=== PATIENT | female | born 1945 | race Caucasian/White ===

== ENCOUNTER 2024-03-04 04:16 | Inpatient (IN) | payer OTHER, SELFPAY ==
[2024-03-03 21:04] VITALS: BP 189/107; BMI 21.5
[2024-03-03 21:32] LABS: % Basophils 0.1 % (0-2); % Eosinophils 0.9 % (0-6); % Immature Granulocytes 0.4 % (0-0.5); % Monocytes 4.5 % (1.7-9.3); % Neutrophils 70.1 % (42.2-75.2); Absolute Eosinophils 0.1 10^3/uL (0-0.7); Absolute Lymphocytes 1.8 10^3/uL (1.2-3.4); Absolute Monocytes 0.3 10^3/uL (0.1-0.6); Absolute Neutrophils 5.2 10^3/uL (1.4-6.5); Hematocrit 29.5 % (37.0-47.0); Hemoglobin 10.3 g/dL (12.0-16.0); Mean Corp Hgb Conc. 34.9 g/dL (33.0-37.0); Mean Corpuscular Hgb 32.3 pg (27.0-31.0); Mean Corpuscular Volume 92.5 fL (81.0-99.0); Mean Platelet Volume 8.5 fL (7.4-10.4); Nucleated Red Blood Cells % 0 %; Platelet Count 224 10^3/uL (130-400); Red Blood Cell Count 3.19 10^6/uL (4.20-5.40); Red Cell Dist. Width 13.4 % (11.5-14.5); White Blood Cell Count 7.5 10^3/uL (4.8-10.8)
[2024-03-03 21:44] LABS: ALT (SGPT) 37 U/L (0-35); AST (SGOT) 64 U/L (14-36); Alkaline Phosphatase 156 U/L (38-126); Blood Urea Nitrogen 18 mg/dl (7-17); Calcium 9.5 mg/dl (8.4-10.2); Carbon Dioxide 20 mmol/L (22-30); Chloride 109 mmol/L (98-107); Estimated Creatinine Clearance 26 ml/min; Glucose 107 mg/dl (70-99); Potassium 3.9 mmol/L (3.5-5.1); Sodium 139 mmol/L (135-145); Total Bilirubin 0.3 mg/dl (0.2-1.3); Total Protein 7.2 g/dl (6.3-8.2); eGFR 42.35
[2024-03-03 21:52] LABS: Lipase < 10 U/L (23-300)
[2024-03-03 21:56] LABS: Troponin I < 0.012 ng/ml
[2024-03-03 23:29] VITALS: BP 187/102
--- NOTE | 2024-03-03 23:42 | ED.GENMED ---
History of Present Illness
General
Chief Complaint: Blood Pressure Problem
Source: patient and family
Exam Limitations: none
Time Seen by Provider: 03/03/24 23:13
Nursing documentation reviewed up to this point in time: agreed with
Travel History
Have you had any contact with someone who has COVID-19?: No
Do you have any symptoms of coronavirus? Fever > 100 degrees, chills, cough, shortness of breath, sore throat, loss of taste or smell, muscle aches, or headache?: No
History of Present Illness
History of Present Illness:
78-year-old female for 5 days intermittent dizziness, associated with some headaches, comes out of the blue feels like she is hungry eats and does not improved too much, does have a history of gastroparesis she has had a fundoplication for 5 months
ago since then she has had sounds like dumping syndrome, frequent nausea some vomiting and diarrhea after eating, history of hypertension on Norvasc 5, she did take her blood pressure today was elevated spoke to her PCP referred to the ER to be
evaluated no slurred speech no arm or leg weakness
Past History
Past History
ED Past Medical History: Asthma, Cancer (Breast), COPD, GERD, HTN and Other (PNA, gastropariesis, )
ED Past Surgical History: Cholecystectomy, Orthopedic (right shoulder surgery. Spinal fusion) and Other ( surgery for Fundification. )
Social History
Tobacco: Former smoker
Alcohol: None
Drug: None
Personal:
Living: with family (Son)
Employment: Retired
Review of Systems
Review of Systems
All Other Systems: Not applicable
Constitutional: Denies fever or fatigue
EENT: Reports no symptoms
Respiratory: Reports no symptoms
Cardiac: Reports no symptoms
ABD/GI: Reports abdominal pain (Chronic complaint), nausea, vomiting and diarrhea ( chronic complaint)
Neurological: Reports dizzy
Phy Exam
Physical Exam
Physical Exam:
Physical Exam
General: no apparent distress, not acutely ill
Neck: Lips are slightly dry
Heart: s1/s2 regular rate and rhythm, no murmur. equal radial pulses.
Lungs: no acute respiratory distress. clear bilaterally
Abdomen: Soft very mild diffuse tenderness no guarding or rebound
Neuro: alert and oriented. no focal neurological deficits normal finger-nose
Skin: no rash
Psychiatric: well kept. interactive and cooperative
Extremities: no edema.
Course
Orders/Labs/Results
Orders:
Orders
03/03/24 21:08
Electrocardiogram (*1) Urgent
Reason for Study: Chest Pain
EKG- Treatment ONCE
03/03/24 21:26
Complete Blood Count/With Diff Urgent
Comprehensive Metabolic Panel Urgent
Lipase Urgent
Troponin I Urgent
03/03/24 23:41
0.9% Sodium Chloride 1000 ml [Nss] 1,000 ml IV BOLUS
HydrALAZINE [Apresoline] 5 mg IV NOW STA
Ondansetron Injectable [Zofran] 4 mg IV NOW STA
Abnormal Lab Results
03/03/24
21:26
RBC 3.19 L 10^6/uL
(4.20-5.40)
Hgb 10.3 L g/dL
(12.0-16.0)
Hct 29.5 L %
(37.0-47.0)
MCH 32.3 H pg
(27.0-31.0)
Chloride 109 H mmol/L
(98-107)
Carbon Dioxide 20 L mmol/L
(22-30)
BUN 18 H mg/dl
(7-17)
Creatinine 1.3 H mg/dL
(0.6-1.0)
Glucose 107 H mg/dl
(70-99)
AST 64 H U/L
(14-36)
ALT 37 H U/L
(0-35)
Alkaline Phosphatase 156 H U/L
(38-126)
Lipase < 10 L U/L
(23-300)
03/03/24 21:26
03/03/24 21:26
Vital Signs
Initial and Last Documented VS:
Initial Vital Signs
Temp Pulse Resp BP Pulse Ox
98 F 84 20 189/107 98
03/03/24 21:04 03/03/24 21:04 03/03/24 21:04 03/03/24 21:04 03/03/24 21:04
Last Documented Vital Signs
Temp Pulse Resp BP Pulse Ox
98 F 84 20 189/107 98
03/03/24 21:04 03/03/24 21:04 03/03/24 21:04 03/03/24 21:04 03/03/24 21:04
MDM/Problems Addressed
Differential Diagnosis Includes:
Electrolyte abnormality dehydration vertigo doubt intracerebral hemorrhage, perhaps related to accelerated hypertension
MDM/Problems Addressed:
Dizziness, subacute diarrhea hypertension
Chronic conditions affecting care: HTN and Previous abdomnial surgery
Acute Exacerbation and/or Progression of Chronic Illness: HTN and Previous abdomnial surgery
*Radiology
Radiology exam reviewed: radiology read reviewed
*Pulse Oximetry
Patient hypoxic: no
*EKG
Interpreted by ED Provider?: Yes
Interpretation: normal
Heart Rate: 78
Rate: normal
Ischemia: no ischemia
*Chairman Ceo Interpretation
Rate: normal
Interpretation: normal
Heart Rate: 78
Rhythm: sinus
*Critical Care Note
Total Time (30-74mins, 75-104mins- exclusive of procedures): Not Applicable
ED Attending Note
-
Portions of this chart may have been created with voice recognition software.� Occasional wrong word or��sound alike� substitutions may have occurred due to the inherent limitations of voice recognition software.
Discharge Plan
Departure
Prescriptions:
No Action
cephalexin 500 mg capsule
500 mg PO Q12H 5 Days Qty: 10 0RF
Referrals:
Eddie Degroot I., DO [Family Provider] -
Interventions
Interventions:
*Risk Screen - Suicide Last Done: 03/03/24 21:04
*General Assessment Last Done: 03/03/24 23:23
*Neglect/Abuse Screening Last Done: 03/03/24 21:04
ED- Fall Risk Assessment Last Done: 03/03/24 21:04
*ED COVID-19 Vaccine History Last Done: 03/03/24 23:23
ED- Cardiac Assessment Last Done: 03/03/24 23:23
ED- Neurological Assessment Last Done: 03/03/24 23:23
ED- Pulmonary Assessment Last Done: 03/03/24 23:23
Discharge Date and Time
Print Language: THAI
[2024-03-04] VITALS (17 sets, daily range): BP systolic 135–197; BP diastolic 71–137; BMI 22.0
[2024-03-04] MEDS: NSS 1000 IV (00:03)
[2024-03-04] MEDS: APRESOLINE 5 MG IV (00:04)
[2024-03-04] MEDS: ZOFRAN 4 MG IV (00:04)
[2024-03-04] MEDS: TYLENOL 650 MG PO (00:48)
--- NOTE | 2024-03-04 01:23 | ED.GENMED ---
History of Present Illness
General
Chief Complaint: Blood Pressure Problem
Time Seen by Provider: 03/03/24 23:13
Travel History
Have you had any contact with someone who has COVID-19?: No
Do you have any symptoms of coronavirus? Fever > 100 degrees, chills, cough, shortness of breath, sore throat, loss of taste or smell, muscle aches, or headache?: No
Past History
Past History
ED Past Medical History: Asthma, Cancer (Breast), COPD, GERD, HTN and Other (PNA, gastropariesis, )
ED Past Surgical History: Cholecystectomy, Orthopedic (right shoulder surgery. Spinal fusion) and Other ( surgery for Fundification. )
Social History
Tobacco: Former smoker
Alcohol: None
Drug: None
Personal:
Living: with family (Son)
Employment: Retired
Course
Orders/Labs/Results
Orders:
Orders
03/03/24 21:08
Electrocardiogram (*1) Urgent
Reason for Study: Chest Pain
EKG- Treatment ONCE
03/03/24 21:26
Complete Blood Count/With Diff Urgent
Comprehensive Metabolic Panel Urgent
Lipase Urgent
Troponin I Urgent
03/03/24 23:41
0.9% Sodium Chloride 1000 ml [Nss] 1,000 ml IV BOLUS
HydrALAZINE [Apresoline] 5 mg IV NOW STA
Ondansetron Injectable [Zofran] 4 mg IV NOW STA
03/04/24 00:07
CT Head W/o Iv Contrast Urgent
Comment:
Reason For Exam: dizzy headache
03/04/24 00:44
Acetaminophen [Tylenol] 650 mg PO NOW STA
03/04/24 01:21
Lorazepam [Ativan] 1 mg IV NOW STA
Abnormal Lab Results
03/03/24
21:26
RBC 3.19 L 10^6/uL
(4.20-5.40)
Hgb 10.3 L g/dL
(12.0-16.0)
Hct 29.5 L %
(37.0-47.0)
MCH 32.3 H pg
(27.0-31.0)
Chloride 109 H mmol/L
(98-107)
Carbon Dioxide 20 L mmol/L
(22-30)
BUN 18 H mg/dl
(7-17)
Creatinine 1.3 H mg/dL
(0.6-1.0)
Glucose 107 H mg/dl
(70-99)
AST 64 H U/L
(14-36)
ALT 37 H U/L
(0-35)
Alkaline Phosphatase 156 H U/L
(38-126)
Lipase < 10 L U/L
(23-300)
03/03/24 21:26
03/03/24 21:26
Vital Signs
Initial and Last Documented VS:
Initial Vital Signs
Temp Pulse Resp BP Pulse Ox
98 F 84 20 189/107 98
03/03/24 21:04 03/03/24 21:04 03/03/24 21:04 03/03/24 21:04 03/03/24 21:04
Last Documented Vital Signs
Temp Pulse Resp BP Pulse Ox
98 F 87 18 144/95 98
03/03/24 21:04 03/04/24 02:00 03/04/24 02:00 03/04/24 02:00 03/03/24 21:04
Update Note
Update Note:
1:20 AM called to the room patient shaking, slightly diaphoretic, blood pressure markedly elevated speech is clear he had a headache earlier
BP 197/137
Try dose lorazepam like to get a CT scan
Update CT report noted no intracerebral hemorrhage blood pressure improved patient still a bit shaky much improved differential would include pheochromocytoma anxiety accelerated hypertension
ED Attending Note
-
Portions of this chart may have been created with voice recognition software.� Occasional wrong word or��sound alike� substitutions may have occurred due to the inherent limitations of voice recognition software.
Discharge Plan
Departure
Patient Disposition: Admit
Date of Disposition: 03/04/24
Time of Disposition: 02:52
Condition: Fair
Covid-19: Not Applicable
Discharge Problem:
Accelerated hypertension
Prescriptions:
No Action
cephalexin 500 mg capsule
500 mg PO Q12H 5 Days Qty: 10 0RF
Referrals:
Eddie Degroot I., DO [Family Provider] -
Interventions
Interventions:
*Risk Screen - Suicide Last Done: 03/03/24 21:04
*General Assessment Last Done: 03/03/24 23:23
*Neglect/Abuse Screening Last Done: 03/03/24 21:04
ED- Fall Risk Assessment Last Done: 03/03/24 21:04
*ED COVID-19 Vaccine History Last Done: 03/03/24 23:23
ED- Cardiac Assessment Last Done: 03/03/24 23:23
ED- Neurological Assessment Last Done: 03/03/24 23:23
ED- Pulmonary Assessment Last Done: 03/03/24 23:23
Discharge Date and Time
Print Language: DIVEHI
[2024-03-04] MEDS: ATIVAN 1 MG IV (01:24)
--- NOTE | 2024-03-04 02:57 | HPS.HSE ---
Family Physician
-
Family Physician: Eddie Degroot
Chief Complaint
-
intermittent dizziness
History of Present Illness
Ms. Dana Garcia is a 78 yo woman with hx asthma/COPD, GERD, HTN, gastroparesis s/p fundoplication 5 months ago with post-op course c/b frequent nausea and diarrhea presents to the ER with 5 days of intermittent lightheadedness and elevated blood
pressure at home.
Patient states she was getting episodes of feeling lightheaded dizzy at home over past several days. Symptoms would last 45 minutes - an hour but come back next day. No chest pain, no palpitations, no shortness of breath. Today it reoccurred and
she had trouble concentrating. Son recommended checking blood pressure and it was elevated. They called PCP who suggested patient come to ER.
Patient takes amlodipine 5mg PO QD at home for blood pressure. She takes her med daily and has not skipped doses. No recent medication changes. She states it's typical for her to run high at her doctor's office but doesn't know exact numbers.
While in ER she had episode of feeling unwell with tremors and blood pressure checked and found to be 193/137. She was given Hydralazine with improvement to 176/112 and now 150's/90.
No recent fevers/chills. No LE swelling. No rash.
Patient had gastroparesis s/p fundoplication then s/p revision with loosening of sphincter 5-6 months ago. Since procedure she has significant diarrhea and abdominal upset. She has been tested for C. Diff twice. She takes Lomotil and had an
appointment to follow up with her GI doctor associated with [facility] tomorrow.
Medical History
Past Medical History
Past Medical History: Reports Other (asthma/COPD, GERD, HTN, gastroparesis s/p fundoplication 5 months ago)
Past Surgical History: Reports Cholecystectomy, Orthopedic and Other
Social History
Tobacco: Former Smoker
Alcohol: None
Family History
Family History: Not pertinent
Allergies / Home Medications
Allergies reflects when Allergies were last updated in [employer].
Home Medications with original date entered in [employer]
Allergy/Medication List:
Allergies
Allergy/AdvReac Type Severity Reaction Status Date / Time
aspirin Allergy Severe Unknown Verified 03/03/24 21:07
NSAIDS (Non-Steroidal Allergy Severe Unknown Verified 03/03/24 21:07
Anti-Inflamma
penicillin G Allergy Severe Unknown Verified 03/03/24 21:07
Penicillins Allergy Severe Unknown Verified 03/03/24 21:07
Salicylates * Allergy Severe Unknown Verified 03/03/24 21:07
Sulfa (Sulfonamide Allergy Severe Unknown Verified 03/03/24 21:07
Antibiotics)
sulfamethoxazole Allergy Severe Unknown Verified 03/03/24 21:07
trimethoprim Allergy Severe Unknown Verified 03/03/24 21:07
Home Medications
diphenoxylate-atropine 2.5 mg-0.025 mg tablet (Lomotil) 1 tab PO DAILY PRN diarrhea 03/04/24
famotidine 20 mg tablet (Pepcid) 40 mg PO HS 03/04/24
omega-3 fatty acids-fish oil 684 mg-1,200 mg capsule,delayed release 1 cap PO DAILY 03/04/24
pantoprazole 40 mg tablet,delayed release (Protonix) 40 mg PO DAILY 03/04/24
Review of Systems
-
History Source: Patient
A 12 point ROS was completed and negative except as noted: Yes
Physical Exam
Vital Signs
Vital Signs
Temp Pulse Resp BP Pulse Ox
98 F 87 18 144/95 98
03/03/24 21:04 03/04/24 02:00 03/04/24 02:00 03/04/24 02:00 03/03/24 21:04
Physical Exam
General: No Apparent Distress and Conversant
HEENT: PERRLA
Respiratory: Clear; No Wheezes
Cardiac: S1/S2 and Regular Rhythm
GI: Soft and Non Tender
Musculoskeletal: No Edema
Skin: Warm and Dry; No Rash
Neuro: AO x 3
Psych: Calm
Laboratory Results
-
03/03/24 21:26
03/03/24:
Laboratory Results
Total Bilirubin 0.3 mg/dl (0.2-1.3) 03/03/24:
AST 64 U/L (14-36) H 03/03/24:
ALT 37 U/L (0-35) H 03/03/24:
Alkaline Phosphatase 156 U/L (38-126) H 03/03/24:
Troponin I < 0.012 ng/ml 03/03/24:
Lipase < 10 U/L (23-300) L 03/03/24:
Data Reviewed
-
Diagnostic Radiology: Report Reviewed by me
Lab Data: Labs Reviewed by me
Impression/Plan
-
Ms. Dana Garcia is a 78 yo woman with hx asthma/COPD, GERD, HTN, gastroparesis s/p fundoplication 5 months ago with post-op course c/b frequent nausea and diarrhea presents to the ER with 5 days of intermittent dizziness and elevated blood
pressure at home.
Triage VS: T 98, P 84, RR 20, BP 189/107, SpO2 98%
LABS: WBC 7.5, Hg 10.3, PLT 224, Na 139, K+ 3.9, CO2 20, BUN 18, Cr 1.3 (baseline), Glucose 107, T. Bili 0.3, AST 64, ALT 37, Trop < 0.012, Lipase < 10
EKG, sinus rhythm with short [place] interval; q waves inferior leads
Head CT: no acute intracranial abnormality. No acute territorial infarct, hemorrhage, mass effect or midline shift. chronic small bifrontal subdural effusions
MAR: IV Hydralazine, IVF, Ativan, Zofran, Tylenol
Hypertensive Urgency
-patient with readings up to 197/137 in ER with symptoms; high BP likely related to lightheaded episodes at home
-increase HARPOON ENGAGEMENT PLANNING OPERATOR amlodipine from 5 to 10mg with PRN hydralazine for now
-Renal consult
-TTE
-F/U work-up renin/aldosterone and plasma metanephrines
-trend Troponins
GERD
Hx Gastroparesis s/p fundoplication
chronic diarrhea post procedure
-continue HARPOON ENGAGEMENT PLANNING OPERATOR protonix/Pepcid
-HARPOON ENGAGEMENT PLANNING OPERATOR Lomotil PRN
-patient to continue follow up with outpatient providers at [facility]
DVT PPx SCD
FULL CODE
[2024-03-04 03:45] LABS: Magnesium 1.7 mg/dl (1.6-2.3)
[2024-03-04 07:01] LABS: % Basophils 0.5 % (0-2); % Eosinophils 1.9 % (0-6); % Immature Granulocytes 0.2 % (0-0.5); % Lymphocytes 32.9 % (20.5-51.1); % Monocytes 4.5 % (1.7-9.3); Absolute Eosinophils 0.1 10^3/uL (0-0.7); Absolute Monocytes 0.3 10^3/uL (0.1-0.6); Absolute Neutrophils 3.7 10^3/uL (1.4-6.5); Hematocrit 30.7 % (37.0-47.0); Hemoglobin 10.4 g/dL (12.0-16.0); Mean Corp Hgb Conc. 33.9 g/dL (33.0-37.0); Mean Corpuscular Hgb 31.8 pg (27.0-31.0); Mean Corpuscular Volume 93.9 fL (81.0-99.0); Mean Platelet Volume 8.8 fL (7.4-10.4); Nucleated Red Blood Cells % 0 %; Platelet Count 225 10^3/uL (130-400); Red Blood Cell Count 3.27 10^6/uL (4.20-5.40); Red Cell Dist. Width 13.2 % (11.5-14.5); White Blood Cell Count 6.2 10^3/uL (4.8-10.8)
[2024-03-04 07:20] LABS: Troponin I < 0.012 ng/ml
[2024-03-04 07:26] LABS: Blood Urea Nitrogen 17 mg/dl (7-17); Calcium 9.2 mg/dl (8.4-10.2); Carbon Dioxide 23 mmol/L (22-30); Chloride 110 mmol/L (98-107); Estimated Creatinine Clearance 34 ml/min; Glucose 108 mg/dl (70-99); Magnesium 1.6 mg/dl (1.6-2.3); Potassium 4.2 mmol/L (3.5-5.1); Sodium 138 mmol/L (135-145); eGFR 58.02
[2024-03-04 07:49] LABS: Cortisol, Random 17.8 ug/dl; TSH 2.75 uIU/ml (0.47-4.68)
[2024-03-04] MEDS: PROTONIX 40 MG PO (08:39)
--- NOTE | 2024-03-04 09:49 | W.CON.NEPH ---
Consultation
-
Date/Time Consultation Requested: 03/04/2024 8:00 AM
Date/Time Consultation Performed: 03/04/2024 10:00
Requesting Provider: Hardik
Performing Provider: Dr. Cruz
Reason for Consultation: Hypertension
Medical History
-
Chief Complaint: Hypertension
History of Present Illness:
The patient is a 78-year-old female with a past medical history of hypertension maintained on amlodipine. She is maintained on Pepcid and Protonix for her GERD. She is maintained on fish oil for dyslipidemia. She has a prior history of
gastroparesis and underwent fundoplication 5 months previous with a postoperative course complicated by frequent nausea and diarrhea. She presented to the emergency room with 5 days of ongoing intermittent lightheadedness and elevated blood
pressure at home. There is no associated chest pain palpitations or shortness of breath with her lightheadedness. Prior to her presentation to the hospital yesterday she was having trouble concentrating. On presentation to the hospital her blood
pressure was 193/137. We were consulted in regards to her hypertension management
Past Medical History
Asthma COPD
Hypertension
Gastroparesis status post fundoplication 5 months previous
GERD
Social History
Tobacco: Former Smoker
Alcohol: None
Family History
No CKD
Allergies / Home Medications
Allergy/AdvReac Type Severity Reaction Status Date / Time
aspirin Allergy Severe Unknown Verified 03/03/24 21:07
NSAIDS (Non-Steroidal Allergy Severe Unknown Verified 03/03/24 21:07
Anti-Inflamma
penicillin G Allergy Severe Unknown Verified 03/03/24 21:07
Penicillins Allergy Severe Unknown Verified 03/03/24 21:07
Salicylates * Allergy Severe Unknown Verified 03/03/24 21:07
Sulfa (Sulfonamide Allergy Severe Unknown Verified 03/03/24 21:07
Antibiotics)
sulfamethoxazole Allergy Severe Unknown Verified 03/03/24 21:07
trimethoprim Allergy Severe Unknown Verified 03/03/24 21:07
�Medication �Instructions �Recorded �Confirmed �Type
diphenoxylate-atropine 2.5 1 tab PO DAILY PRN diarrhea 03/04/24 03/04/24 History
mg-0.025 mg tablet (Lomotil)
famotidine 20 mg tablet (Pepcid) 40 mg PO HS Gastrointestinal Issue 03/04/24 03/04/24 History
omega-3 fatty acids-fish oil 684 1 cap PO DAILY Supplement 03/04/24 03/04/24 History
mg-1,200 mg capsule,delayed release
pantoprazole 40 mg tablet,delayed 40 mg PO DAILY Gastrointestinal 03/04/24 03/04/24 History
release (Protonix) Issue
Review of Systems
-
History Source: Patient
All other systems: Negative unless noted
Constitutional: No Symptoms
EENT: No Symptoms
Respiratory: No Symptoms
Cardiac: No Symptoms
Abdomen/GI: Nausea, Vomiting and Diarrhea
: No Symptoms
Musculoskeletal: No Symptoms
Skin: No Symptoms
Neurological: Dizzy
Endocrine: No Symptoms
Hematologic/Lymphatic: No Symptoms
Physical Exam
Vital Signs
Vital Signs
Temp Pulse Resp BP Pulse Ox
97.9 F 79 19 153/94 98
03/04/24 07:07 03/04/24 07:07 03/04/24 07:07 03/04/24 07:07 03/04/24 07:07
Lab Results
03/04/24 06:37
03/04/24 06:37
WBC 6.2 10^3/uL (4.8-10.8) 03/04/24 06:37
RBC 3.27 10^6/uL (4.20-5.40) L 03/04/24 06:37
Hgb 10.4 g/dL (12.0-16.0) L 03/04/24 06:37
Hct 30.7 % (37.0-47.0) L 03/04/24 06:37
Plt Count 225 10^3/uL (130-400) 03/04/24 06:37
Sodium 138 mmol/L (135-145) 03/04/24 06:37
Potassium 4.2 mmol/L (3.5-5.1) 03/04/24 06:37
Chloride 110 mmol/L (98-107) H 03/04/24 06:37
Carbon Dioxide 23 mmol/L (22-30) 03/04/24 06:37
BUN 17 mg/dl (7-17) 03/04/24 06:37
Creatinine 1.0 mg/dL (0.6-1.0) 03/04/24 06:37
eGFR 58.02 03/04/24 06:37
Glucose 108 mg/dl (70-99) H 03/04/24 06:37
Calcium 9.2 mg/dl (8.4-10.2) 03/04/24 06:37
Albumin 4.0 g/dl (3.5-5.0) 03/03/24 21:26
Physical Exam
General: AOx3, Nontoxic , NAD
HEENT: PERRL, EOMI, Anicteric, Conjunctivae Clear, Ear/Nose Intact, Hearing Normal, Oropharynx Clear/Moist, Dentition Intact, Facial Symmetry, Neck Supple, Neck: Trachea Midline, No JVD and No Thyromegaly, no Bruits
Respiratory: Clear to auscultation bilaterally with normal lung exersion
Cardiac: S1/S2 and Regular Rate/Rhythm
Breast: Deferred by me
Abdomen: Soft, Nontender, Nondistended, Normal Bowel Sounds and No Hepatosplenomegaly
Rectal: Deferred by Provider
Genito-urinary: No Costovertebral Tenderness
Extremities: No Clubbing, No Cyanosis and No Edema
Skin: No Rash or open lesions
Neuro: Nonfocal/Grossly Intact, CN II-XII (Intact) and Strength (Musculoskeletal exam 5 out of 5 both upper and lower extremities)
Hematologic/Lymphatic: No Cervical Lymphadenopathy, No Submandibular Lymphadenopathy and No Supraclavicular Lymphadenopathy
Psych: Mood/afflect pleasant, Insight/judgement good and Appropriate
Vascular: plus 2 pedal and radial pulses
Data Reviewed
-
Medical Tests (Nuc Med, Echo etc): Image Personally Visualized and interpreted (Sinus rhythm with right bundle branch block)
Labs: Labs Reviewed by me ([facility])
Old Records: Reviewed (Creatinine 1.31 11/08/22)
Assessment/Plan
-
Impression:
Hypertension with hypertensive urgency
Dizziness
History of gastroparesis status post fundoplication 5 months previously
GERD
Asthma\\COPD
Plan:
Will increase amlodipine from 5 to 10 mg
could add ARB if bp remains elevated
2 workup in progress, will also obtain Renal artery duplex given abrupt onset of HTN
--- NOTE | 2024-03-04 12:16 | PTCARENOTE ---
Verbal order for NPO 1124. Renal ultrasound later this afternoon.
[2024-03-04 12:27] LABS: Troponin I < 0.012 ng/ml
--- NOTE | 2024-03-04 12:54 | VNURNOTE ---
Home Health Liaison met with patient at bedside to discuss [facility] nurse/therapy, visits, schedule and homebound status. Patient is agreeable and understands that visits at home will be 2-3 x per week to assess and teach medical management. [facility]
brochure provided with contact information. Patient is aware that [facility] will contact them for start of care in 1-2 days after discharge from . Will follow along hospital course. [facility] referral completed in [facility].
--- NOTE | 2024-03-04 13:23 | W.PN.HOSP.TC ---
Today's Communication/Plan
-
amlodipine
iv hydral prn
secondary work up
mri/mra
carotid us
hb1ac, lipid panel
start asa
Assessment / Plan
Assessment / Plan
Physical Exam
General: No Apparent Distress and Conversant
HEENT: PERRLA
Respiratory: Clear; No Wheezes
Cardiac: S1/S2 and Regular Rhythm
GI: Soft and Non Tender
Musculoskeletal: No Edema
Skin: Warm and Dry; No Rash
Neuro: AO x 3
Psych: Calm
Ms. Dana Garcia is a 78 yo woman with hx asthma/COPD, GERD, HTN, gastroparesis s/p fundoplication 5 months ago with post-op course c/b frequent nausea and diarrhea presents to the ER with 5 days of intermittent dizziness and elevated blood
pressure at home.
#Dizziness
� I suspect secondary to hypertensive urgency although still dizzy with improved blood pressures
� Control blood pressures�increase amlodipine to 10 mg
� IV hydralazine as needed
� Appreciate nephrology recommendations
� Follow-up secondary workup included renal artery stenosis workup
� Follow-up TTE
� Follow-up MRI/MRA
- Follow-up carotid ultrasound
� Follow-up hemoglobin A1c, lipid panel
- Start aspirin
- PT/OT
#Hypertensive urgency
� Increase amlodipine to 10 mg
� Add ARB if BP remains elevated
� Follow-up secondary hypertensive workup
#DVT prophylaxis
� HSQ
Total time spent on today's encounter was 50 minutes which included time spent in counseling the patient/family regarding diagnosis and treatment plan as listed above, goals of care, and symptom management. Case was discussed with nursing staff,
specialists, and care coordinators/case management. All labs and imaging personally reviewed by me. Remainder the time spent in detailed review of previous records, lab data, imaging, and other medical provider documentation.
Anticipated Discharge: 24 - 48 hours
Subjective/Interval History
-
Date of Service: March 04, 2024
Patient still dizzy, although improved
Objective Data
-
Labs:
Laboratory Results
03/04/24
06:37
WBC 6.2
Hgb 10.4 L
Hct 30.7 L
Plt Count 225
Sodium 138
Potassium 4.2
Chloride 110 H
Carbon Dioxide 23
BUN 17
Creatinine 1.0
Glucose 108 H
Calcium 9.2
Vital Signs:
Vital Signs
Temp Pulse Resp BP Pulse Ox
97.8 F 81 18 135/89 99
03/04/24 11:00 03/04/24 11:00 03/04/24 11:00 03/04/24 11:00 03/04/24 11:00
Review of Systems
-
History Source: Patient
All other systems: Not reviewed unless documented
Data Reviewed
-
CT Scan: Image personally visualized and interpreted and Report Reviewed by me
Labs: Labs Reviewed by me
[2024-03-04 15:01] LABS: HDL Cholesterol 63 mg/dl; LDL Cholesterol, Calculated 54 mg/dl; Total Cholesterol 131 mg/dl (50-199); Triglyceride 72 mg/dl (10-149); Very Low Density Lipoprotein 14 mg/dl (0-30)
--- NOTE | 2024-03-04 15:19 | PTCARENOTE ---
pt refused 1400 dose of asa. Doctor Hardik notified
--- NOTE | 2024-03-04 15:27 | CM ---
Initial assessment completed with patient who lives in a split level home with her son, son'anamaria richard' and her 21 y/o daughter, 2 grand-daughters (15 and 20) and a 16 y/o grandson. Patient lives on the 1st floor. She uses a SPC and also has a RW
and grab bar at the shower, no in-home services. 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 Pharmacy is [facility] in [place] and PCP is Dr. Eddie Degroot. Anticipate home with no needs.
--- NOTE | 2024-03-04 15:54 | VNURNOTE ---
Addendum to prior Visiting Nurse Note: Spoke with patient again to re-evaluate homebound status. Patient stated she will probably resume driving within a few days of DC, if doctor permits. She has family support and would not qualify for
homebound. [facility] Intake notified to cancel referral.
[2024-03-04 18:54] LABS: Troponin I < 0.012 ng/ml
[2024-03-04] MEDS: HEPARIN 5000 UNITS SC (20:03)
[2024-03-04] MEDS: PEPCID 40 MG PO (22:43)
[2024-03-05] VITALS (8 sets, daily range): BP systolic 112–165; BP diastolic 81–97; PULSE 85
[2024-03-05 00:40] LABS: Troponin I < 0.012 ng/ml
--- NOTE | 2024-03-05 00:49 | W.PN.UPDATE ---
Update Note
Progress Note Update
RN notified AUTO TESTER Patient addressed she did not take her amlodipine at home. BP stable at this time. will order Amlodipine 10mg PO daily per provider notes.
[2024-03-05 06:28] LABS: Urine Albumin Trace (Neg - Trace); Urine Bilirubin Negative (Negative); Urine Character Clear (Clear); Urine Color Yellow; Urine Glucose Negative (Negative); Urine Ketone Negative (Negative); Urine Leukocyte Negative (Negative); Urine Nitrite Negative (Negative); Urine Occult Blood Negative (Negative); Urine Specific Gravity 1.015 (<1.030); Urine Urobilinogen Negative (Neg - 1+)
[2024-03-05 08:20] LABS: Hemoglobin 9.7 g/dL (12.0-16.0); Mean Corp Hgb Conc. 34.6 g/dL (33.0-37.0); Mean Corpuscular Hgb 32.4 pg (27.0-31.0); Mean Corpuscular Volume 93.6 fL (81.0-99.0); Platelet Count 203 10^3/uL (130-400); Red Blood Cell Count 2.99 10^6/uL (4.20-5.40); Red Cell Dist. Width 13.2 % (11.5-14.5); White Blood Cell Count 5.2 10^3/uL (4.8-10.8)
[2024-03-05 08:53] LABS: ALT (SGPT) 34 U/L (0-35); AST (SGOT) 37 U/L (14-36); Albumin 3.2 g/dl (3.5-5.0); Alkaline Phosphatase 112 U/L (38-126); Blood Urea Nitrogen 21 mg/dl (7-17); Calcium 8.9 mg/dl (8.4-10.2); Carbon Dioxide 25 mmol/L (22-30); Chloride 107 mmol/L (98-107); Estimated Creatinine Clearance 24 ml/min; Glucose 86 mg/dl (70-99); Potassium 4.2 mmol/L (3.5-5.1); Sodium 138 mmol/L (135-145); Total Bilirubin 0.2 mg/dl (0.2-1.3); Total Protein 6.2 g/dl (6.3-8.2); eGFR 38.75
[2024-03-05] MEDS: NORVASC 10 MG PO (09:00)
[2024-03-05] MEDS: PROTONIX 40 MG PO (09:00)
[2024-03-05] MEDS: HEPARIN 5000 UNITS SC ×2 (09:01→20:29)
[2024-03-05] MEDS: VITAMIN D3 (cholecalciferol) 125 MCG PO (09:02)
--- NOTE | 2024-03-05 10:04 | W.PN.NEPH.PH ---
Today's Communication / Plan
-
Observe on 10 mg of amlodipine
Assessment/Plan
-
Impression:
Hypertension with hypertensive urgency
Dizziness
History of gastroparesis status post fundoplication 5 months previously
GERD
Asthma\\COPD
CKD (1.3)
Plan:
Amlodipine 10 mg was apparently not given since admitted to the hospital, now on 10 mg first dose given this morning
could add ARB if bp remains elevated
Negative renal artery duplex was reviewed : given abrupt onset of HTN
Creatinine of 1.4
Blood chemistries are a secondary hypertensive workup still in progress
-
-
Date of Service: March 05, 2024
CC / HPI / ROS
-
Chief Complaint:
Hypertension
CKD
History of Present Illness:
Blood pressure now treated with 10 mg of amlodipine
Creatinine stable at 1.4
Review of Systems:
Continued intermittent headache and dizziness
No fever
No chest pain or shortness of breath
Labs
-
Labs:
Sodium 138 mmol/L (135-145) 03/05/24 05:06
Potassium 4.2 mmol/L (3.5-5.1) 03/05/24 05:06
Chloride 107 mmol/L (98-107) 03/05/24 05:06
Carbon Dioxide 25 mmol/L (22-30) 03/05/24 05:06
BUN 21 mg/dl (7-17) H 03/05/24 05:06
Creatinine 1.4 mg/dL (0.6-1.0) H 03/05/24 05:06
eGFR 38.75 03/05/24 05:06
Glucose 86 mg/dl (70-99) 03/05/24 05:06
Calcium 8.9 mg/dl (8.4-10.2) 03/05/24 05:06
Albumin 3.2 g/dl (3.5-5.0) L 03/05/24 05:06
Physical Exam
-
Vital Signs:
Vital Signs
Temp Pulse Resp BP Pulse Ox
97.8 F 73 16 160/85 100
03/05/24 07:00 03/05/24 09:00 03/05/24 07:00 03/05/24 09:00 03/05/24 07:00
Cardiovascular:: Regular rate and rhythm
Respiratory:: Bilateral: CTA
Lung Excursion:: Normal
Abdomen:: Nontender and Soft
Bowel Sounds:: Normal
Extremity Edema:: None: Bilateral:
Aranda Catheter: No
[2024-03-05 10:48] LABS: Glycohemoglobin (HgbA1c) 5.3 % (4.0-5.6)
--- NOTE | 2024-03-05 12:23 | W.PN.HOSP.TC ---
Today's Communication/Plan
-
monitor bp
f/u mri
pt/ot
Assessment / Plan
Assessment / Plan
Physical Exam
General: No Apparent Distress and Conversant
HEENT: PERRLA
Respiratory: Clear; No Wheezes
Cardiac: S1/S2 and Regular Rhythm
GI: Soft and Non Tender
Musculoskeletal: No Edema
Skin: Warm and Dry; No Rash
Neuro: AO x 3
Psych: Calm
Ms. Dana Garcia is a 78 yo woman with hx asthma/COPD, GERD, HTN, gastroparesis s/p fundoplication 5 months ago with post-op course c/b frequent nausea and diarrhea presents to the ER with 5 days of intermittent dizziness and elevated blood
pressure at home.
#Dizziness
� I suspect secondary to hypertensive urgency although still dizzy with improved blood pressures
� Control blood pressures�increase amlodipine to 10 mg
� EF WNL, mild concentric LVH
� Appreciate nephrology recommendations
� Secondary work up unremarkable
� Follow-up MRI/MRA
- Follow-up carotid ultrasound: <50% stenosis
� Follow-up hemoglobin A1c: 5.3, lipid panel: LDL 54
- Start aspirin empirically
- PT/OT
#Hypertensive urgency
� Increase amlodipine to 10 mg
� Add ARB if BP remains elevated
� secondary work up negative
#DVT prophylaxis
� HSQ
Anticipated Discharge: Within 24 hours
Subjective/Interval History
-
Date of Service: March 05, 2024
still dizzy at times, awaiting mri
Objective Data
-
Labs:
Laboratory Results
03/05/24
05:06
WBC 5.2
Hgb 9.7 L
Hct 28.0 L
Plt Count 203
Sodium 138
Potassium 4.2
Chloride 107
Carbon Dioxide 25
BUN 21 H
Creatinine 1.4 H
Glucose 86
Calcium 8.9
Total Bilirubin 0.2
AST 37 H
ALT 34
Alkaline Phosphatase 112
Vital Signs:
Vital Signs
Temp Pulse Resp BP Pulse Ox
98 F 80 18 164/97 100
03/05/24 11:00 03/05/24 11:00 03/05/24 11:00 03/05/24 11:00 03/05/24 11:00
I&O
03/04/24 03/05/24 03/06/24
06:59 06:59 06:59
Intake Total 1060 / 1060
Balance 1060 / 1060
Review of Systems
-
History Source: Patient
All other systems: Not reviewed unless documented
Data Reviewed
-
CT Scan: Image personally visualized and interpreted and Report Reviewed by me
Labs: Labs Reviewed by me
[2024-03-05] MEDS: TYLENOL 650 MG PO (20:28)
[2024-03-05] MEDS: PEPCID 40 MG PO (21:24)
[2024-03-05] MEDS: ATIVAN 0.25 MG IV (23:02)
[2024-03-05] MEDS: NSS (PRESERVATIVE FREE) 0.125 ML IV (23:03)
[2024-03-06 03:26] VITALS: BP 129/87
[2024-03-06 07:00] VITALS: BP 170/84
[2024-03-06] MEDS: VITAMIN D3 (cholecalciferol) 125 MCG PO (08:00)
[2024-03-06] MEDS: HEPARIN 5000 UNITS SC (08:00)
[2024-03-06] MEDS: NORVASC 10 MG PO (08:00)
[2024-03-06] MEDS: PROTONIX 40 MG PO (08:00)
[2024-03-06 09:18] LABS: Hematocrit 31.7 % (37.0-47.0); Hemoglobin 10.6 g/dL (12.0-16.0); Mean Corp Hgb Conc. 33.4 g/dL (33.0-37.0); Mean Corpuscular Hgb 31.9 pg (27.0-31.0); Mean Corpuscular Volume 95.5 fL (81.0-99.0); Mean Platelet Volume 8.7 fL (7.4-10.4); Platelet Count 207 10^3/uL (130-400); Red Blood Cell Count 3.32 10^6/uL (4.20-5.40); Red Cell Dist. Width 13.1 % (11.5-14.5); White Blood Cell Count 5.5 10^3/uL (4.8-10.8)
--- NOTE | 2024-03-06 09:39 | PTCARENOTE ---
pt complaining of feeling a little Drowsy this morning, headache that is there does not go away, light sensitivity, eye lids feel heavy she states; mildly swollen. Hospitalist made aware.
[2024-03-06 09:47] LABS: ALT (SGPT) 42 U/L (0-35); AST (SGOT) 58 U/L (14-36); Albumin 3.5 g/dl (3.5-5.0); Alkaline Phosphatase 124 U/L (38-126); Blood Urea Nitrogen 28 mg/dl (7-17); Calcium 9.3 mg/dl (8.4-10.2); Carbon Dioxide 25 mmol/L (22-30); Chloride 105 mmol/L (98-107); Estimated Creatinine Clearance 24 ml/min; Glucose 157 mg/dl (70-99); Potassium 4.2 mmol/L (3.5-5.1); Sodium 136 mmol/L (135-145); Total Bilirubin 0.2 mg/dl (0.2-1.3); Total Protein 6.7 g/dl (6.3-8.2); eGFR 38.75
--- NOTE | 2024-03-06 10:44 | W.PN.HOSP.TC ---
Addendum entered and electronically signed by Tucker Dye MD 03/06/24 14:11:
[id number]
Addendum entered and electronically signed by Tucker Dye MD 03/06/24 14:08:
drowzy after rizatriptan - may stay here if continued headache - depending on how she feels
Original Note:
Today's Communication/Plan
-
Rizatriptan PRN
Add losartan as per nephro recs
DC today, close f/u with PCP, Nephrology, Neurology
Assessment / Plan
Assessment / Plan
Physical Exam
General: No Apparent Distress and Conversant
HEENT: PERRLA
Respiratory: Clear; No Wheezes
Cardiac: S1/S2 and Regular Rhythm
GI: Soft and Non Tender
Musculoskeletal: No Edema
Skin: Warm and Dry; No Rash
Neuro: AO x 3
Psych: Calm
Ms. Dana Garcia is a 78 yo woman with hx asthma/COPD, GERD, HTN, gastroparesis s/p fundoplication 5 months ago with post-op course c/b frequent nausea and diarrhea presents to the ER with 5 days of intermittent dizziness and elevated blood
pressure at home.
#Dizziness
� I suspect secondary to hypertensive urgency although does have migraine symptoms
� Control blood pressures�amlodipine to 10 mg; start losartan 25mg
� EF WNL, mild concentric LVH
� Appreciate nephrology recommendations
� Secondary work up unremarkable
� MRI/MRA unremarkable for acute pathology
- Follow-up carotid ultrasound: <50% stenosis
� Follow-up hemoglobin A1c: 5.3, lipid panel: LDL 54
- PT/OT - cleared for home
-Start Rizatriptan prn
#Migraines
-son has migraines - receiving monthly shots
-Start Rizatriptan as needed
-F/u Neurology outpatient
#Hypertensive urgency
� amlodipine to 10 mg
� Add ARB
� secondary work up negative
#DVT prophylaxis
� HSQ
More than 30 minutes spent in discharge including
Final examination of the patient
Summarizing hospital stay
Instructions for continuing care to all relevant caregivers
Preparation of discharge records, prescriptions, and referral forms
Total time spent (35 in minutes):
Anticipated Discharge: Today
Subjective/Interval History
-
Date of Service: March 06, 2024
Images have migraine symptoms including close sensitivity last night improved with Ativan. Will give rizatriptan today to assess improvement. Blood pressures not extremely high.
Objective Data
-
Labs:
Laboratory Results
03/06/24
08:48
WBC 5.5
Hgb 10.6 L
Hct 31.7 L
Plt Count 207
Sodium 136
Potassium 4.2
Chloride 105
Carbon Dioxide 25
BUN 28 H
Creatinine 1.4 H
Glucose 157 H
Calcium 9.3
Total Bilirubin 0.2
AST 58 H
ALT 42 H
Alkaline Phosphatase 124
Vital Signs:
Vital Signs
Temp Pulse Resp BP Pulse Ox
97.8 F 82 16 170/84 100
03/06/24 07:00 03/06/24 08:00 03/06/24 07:00 03/06/24 08:00 03/06/24 07:00
I&O
03/05/24 03/06/24 03/07/24
06:59 06:59 06:59
Intake Total 1060 / 1060 1200 / 1200
Balance 1060 / 1060 1200 / 1200
Review of Systems
-
History Source: Patient
All other systems: Not reviewed unless documented
Data Reviewed
-
CT Scan: Image personally visualized and interpreted and Report Reviewed by me
Labs: Labs Reviewed by me
[2024-03-06 11:00] VITALS: BP 118/78
[2024-03-06] MEDS: MAXALT MLT (ORALLY DISINTEGRATING) 10 MG PO (11:03)
[2024-03-06] MEDS: COZAAR 25 MG PO (11:03)
--- NOTE | 2024-03-06 11:52 | W.PN.NEPH.PH ---
Today's Communication / Plan
-
Losartan initiated this morning 25 mg
Assessment/Plan
-
Impression:
Hypertension with hypertensive urgency
Dizziness
History of gastroparesis status post fundoplication 5 months previously
GERD
Asthma\\COPD
CKD (1.3)
Plan:
Amlodipine 10 mg , will add losartan 25 mg daily for better blood pressure
Negative renal artery duplex was reviewed : given abrupt onset of HTN
Creatinine of 1.4
Blood chemistries are a secondary hypertensive workup still in progress
Stable for discharge and follow-up with me from hypertension standpoint and CKD
MRI of head was negative for acute finding
-
-
Date of Service: March 06, 2024
CC / HPI / ROS
-
Chief Complaint:
Hypertension
CKD
History of Present Illness:
Blood pressure now treated with 10 mg of amlodipine
Creatinine stable at 1.4
Review of Systems:
Continued intermittent headache and dizziness
No fever
No chest pain or shortness of breath
Labs
-
Labs:
WBC 5.5 10^3/uL (4.8-10.8) 03/06/24 08:48
RBC 3.32 10^6/uL (4.20-5.40) L 03/06/24 08:48
Hgb 10.6 g/dL (12.0-16.0) L 03/06/24 08:48
Hct 31.7 % (37.0-47.0) L 03/06/24 08:48
Plt Count 207 10^3/uL (130-400) 03/06/24 08:48
Sodium 136 mmol/L (135-145) 03/06/24 08:48
Potassium 4.2 mmol/L (3.5-5.1) 03/06/24 08:48
Chloride 105 mmol/L (98-107) 03/06/24 08:48
Carbon Dioxide 25 mmol/L (22-30) 03/06/24 08:48
BUN 28 mg/dl (7-17) H 03/06/24 08:48
Creatinine 1.4 mg/dL (0.6-1.0) H 03/06/24 08:48
eGFR 38.75 03/06/24 08:48
Glucose 157 mg/dl (70-99) H 03/06/24 08:48
Calcium 9.3 mg/dl (8.4-10.2) 03/06/24 08:48
Albumin 3.5 g/dl (3.5-5.0) 03/06/24 08:48
Physical Exam
-
Vital Signs:
Vital Signs
Temp Pulse Resp BP Pulse Ox
98 F 90 18 118/78 97
03/06/24 11:00 03/06/24 11:03 03/06/24 11:00 03/06/24 11:03 03/06/24 11:00
Cardiovascular:: Regular rate and rhythm
Respiratory:: Bilateral: CTA
Lung Excursion:: Normal
Abdomen:: Nontender and Soft
Bowel Sounds:: Normal
Extremity Edema:: None: Bilateral:
Aranda Catheter: No
[2024-03-06 12:44] LABS: Renin Activity Results 0.1 ng/mL/hr
--- NOTE | 2024-03-06 13:16 | CM ---
Addendum entered by Daylin Arboleda RN 03/06/24 15:43:
Patient is discharged to home today with no needs.
Original Note:
Reviewed the chart notes. IMM reviewed and placed on chart.
--- NOTE | 2024-03-06 13:51 | W.DS.TRANS ---
DC Summary - Cabinet Worker
-
Discharge Instructions:
Discharge Diagnosis/Procedures #Hypertensive urgency
#migraine
Diet Low Cholesterol,Low Fat
Instructions:
Stand-Alone Forms:
Changes to Home Medications: Yes
Discharge Medications:
DC Medications w/original date entered in [facility]
amlodipine 10 mg 1XD 03/04/24
cetirizine 10 mg chewable tablet 10 mg 1XD 03/04/24
cholecalciferol (vitamin D3) 125 mcg (5,000 unit) tablet (Vitamin D3) 1 unit 1XD 03/04/24
diphenoxylate-atropine 2.5 mg-0.025 mg tablet (Lomotil) 1 tab PO DAILY PRN diarrhea 03/04/24
famotidine 20 mg tablet (Pepcid) 40 mg PO HS Gastrointestinal Issue 03/04/24
multivitamin 1 tab 1XD 03/04/24
omega-3 fatty acids-fish oil 684 mg-1,200 mg capsule,delayed release 1 cap PO DAILY Supplement 03/04/24
pantoprazole 40 mg tablet,delayed release (Protonix) 40 mg PO DAILY Gastrointestinal Issue 03/04/24
losartan 25 mg tablet 25 mg PO DAILY 30 days #30 tabs 03/06/24
rizatriptan 10 mg disintegrating tablet 10 mg PO ONCE PRN migraine headache #30 tabs 03/06/24
Home Medication Changes
losartan 25 mg tablet 25 mg PO DAILY 30 days #30 tabs 03/06/24
rizatriptan 10 mg disintegrating tablet 10 mg PO ONCE PRN migraine headache #30 tabs 03/06/24
Pending Results: No
[2024-03-06] MEDS: PREVNAR 20 0.5 ML IM (14:33)
[2024-03-06 15:00] VITALS: BP 128/87
== END 2024-03-06 16:47 | disposition home or self-care (01) | DRG 305 ==
LOC: 2 NORTH 04:16
PROVIDERS: Emergency Medicine; ADMITTING PHYSICIAN Student in an Organized Health Care Education/Training Program; ATTENDING PHYSICIAN Internal Medicine; EMERGENCY PHYSICIAN Emergency Medicine; FAMILY PHYSICIAN Internal Medicine; OTHER PHYSICIAN Specialist
DX: I16.0 Hypertensive urgency (principal); J45.901 Unspecified asthma with (acute) exacerbation; Z87.891 Personal history of nicotine dependence; I11.9 Hypertensive heart disease without heart failure; K21.9 Gastro-esophageal reflux disease without esophagitis; G43.909 Migraine, unspecified, not intractable, without status migrainosus; J44.89 Other specified chronic obstructive pulmonary disease
CPT/HCPCS: 70450; 70548; 70551; 80048; 80053; 80061; 81003; 82088; 82384; 82533; 83036; 83690; 83735; 84244; 84443; 84484; 85025; 85027; 87070; 90677; 93005; 93306; 93880; 93975; 96361; 96374; 96375; 97162; 97166; 99285; A9585; G0009

== ENCOUNTER 2025-08-24 17:46 | Emergency (ER) | payer MEDICARE, SELFPAY ==
[2025-08-24 17:49] VITALS: BP 145/79
[2025-08-24 18:23] VITALS: BMI 29.3
[2025-08-24 18:28] VITALS: BP 130/72
[2025-08-24 18:38] LABS: Hematocrit 33.7 % (37.0-47.0); Hemoglobin 11.1 g/dL (12.0-16.0); Mean Corp Hgb Conc. 32.9 g/dL (33.0-37.0); Mean Corpuscular Volume 100.0 fL (81.0-99.0); Nucleated Red Blood Cells % 0 %; Platelet Count 225 10^3/uL (130-400); Red Cell Dist. Width 12.9 % (11.5-14.5)
--- NOTE | 2025-08-24 18:45 | ED.GENMED ---
History of Present Illness
General
Chief Complaint: Change in Mental Status
Source: patient and family
Exam Limitations: none
Time Seen by Provider: 08/24/25 18:10
Nursing documentation reviewed up to this point in time: agreed with
History of Present Illness
History of Present Illness:
80-year-old female hypertension headaches chronically presents with acute confusion onset an hour and a half ago she was on a car ride with her grandson who just got his car driver's license, apparently they went into a parking lot she became acutely
confused with memory loss, was not aware of her surroundings grandson drove her home son states she did seem confused her speech was clear she was somewhat slow to respond moving all extremities she is slowly improving here does have a headache
which is not uncommon for her
Lastly patient does have chronic kidney disease is having issues with her potassium recently followed by nephrology
She did fast for blood work earlier today did have Forman's afterwards though
If applicable-neuro sx onset
Onset of symptoms known: Yes
Date of onset of symptoms: 08/24/25
Time of onset of symptoms: 17:15
Time pt last seen normal is known: Yes
Date last time pt seen normal: 08/24/25
Time last time pt seen normal: 17:14
Past History
Past History
ED Past Medical History: Asthma, Cancer (Breast), COPD, GERD, HTN and Other (PNA, gastropariesis, )
ED Past Surgical History: Cholecystectomy, Orthopedic (right shoulder surgery. Spinal fusion) and Other ( surgery for Fundification. )
Social History
Tobacco: Former smoker
Alcohol: None
Drug: None
Personal:
Living: with family (Son)
Employment: Retired
Phy Exam
Physical Exam
Physical Exam:
Physical Exam
General: no apparent distress, not acutely ill
Neck: No tongue bite no overt signs of head or neck
Heart: s1/s2 regular rate and rhythm, no murmur. equal radial pulses.
Lungs: no acute respiratory distress. clear bilaterally
Abdomen nontender
Neuro: alert and oriented. Slightly slow to respond but moving all extremities oriented x 3
Skin: no rash
Psychiatric: well kept. interactive and cooperative
Extremities: no edema
Course
Orders/Labs/Results
Orders:
Orders
08/24/25 18:24
Electrocardiogram (*1) Urgent
Reason for Study: Other
Other Reason for Exam: Possible Stroke
IV Insert/Care/Rem.- Treatment PRN
08/24/25 18:25
EKG- Treatment ONCE
08/24/25 18:28
Complete Blood Count/With Diff Urgent
Comprehensive Metabolic Panel Urgent
PTT Urgent
Prothrombin Time Urgent
Troponin I Urgent
08/24/25 18:36
CT Head W/o Iv Contrast Urgent
Comment:
Reason For Exam: acuate confusion
08/24/25 20:00
Dextrose 5%/0.9%Sodchl 1000 ml [D5/0.9% Sodium Chloride] 1,000 ml IV 150 mls/hr
Abnormal Lab Results
08/24/25 08/24/25
18:28 20:51
RBC 3.37 L 10^6/uL
(4.20-5.40)
Hgb 11.1 L g/dL
(12.0-16.0)
Hct 33.7 L %
(37.0-47.0)
MCV 100.0 H fL
(81.0-99.0)
MCH 32.9 H pg
(27.0-31.0)
MCHC 32.9 L g/dL
(33.0-37.0)
Absolute Neuts (auto) 7.4 H 10^3/uL
(1.4-6.5)
Lymphocytes % 20.1 L %
(20.5-51.1)
Chloride 112 H mmol/L
(98-107)
Carbon Dioxide 21 L mmol/L
(22-30)
BUN 38 H mg/dl
(7-17)
Creatinine 1.7 H mg/dL
(0.6-1.0)
Glucose 52 L* mg/dl
(70-99)
Total Bilirubin 0.1 L mg/dl
(0.2-1.3)
POC Glucose 131 H mg/dl
(70-99)
08/24/25 18:28
08/24/25 18:28
Vital Signs
Initial and Last Documented VS:
Initial Vital Signs
Temp Pulse Resp BP Pulse Ox
98.2 F 86 18 145/79 100
08/24/25 17:49 08/24/25 17:49 08/24/25 17:49 08/24/25 17:49 08/24/25 17:49
Last Documented Vital Signs
Temp Pulse Resp BP Pulse Ox
98.2 F 82 20 130/72 100
08/24/25 17:49 08/24/25 20:30 08/24/25 20:30 08/24/25 18:28 08/24/25 18:46
MDM/Problems Addressed
Differential Diagnosis Includes:
TGA panic attack CVA seizure intracerebral hemorrhage
MDM/Problems Addressed:
Confused
Chronic conditions affecting care:
Hypertension
Acute Exacerbation and/or Progression of Chronic Illness:
Hypertension
*Radiology
Radiology exam reviewed: radiology read reviewed
*Pulse Oximetry
SaO2: 100
Oxygen Mode of Delivery: Room air
Patient hypoxic: no
*EKG
Interpreted by ED Provider?: Yes
Interpretation: normal
Comparison EKG: no comparison EKG present
Heart Rate: 78
Rate: normal
Rhythm: sinus
Ischemia: no ischemia
*Control Room Supervisor Interpretation
Rate: normal
Interpretation: normal
Heart Rate: 80
Rhythm: sinus
*Critical Care Note
Total Time (30-74mins, 75-104mins- exclusive of procedures): Not Applicable
Data Reviewed
Source: patient and family
Update Note
Update Note:
9 PM update patient looks well awake alert and oriented back to her baseline suspect this was all related to hypoglycemia from prolonged fasting treated here supplemental glucose now back to her baseline discussed with family
ED Attending Note
-
Portions of this chart may have been created with voice recognition software.� Occasional wrong word or��sound alike� substitutions may have occurred due to the inherent limitations of voice recognition software.
Discharge Plan
Departure
Patient Disposition: Home (Routine Discharge)
Date of Disposition: 08/24/25
Time of Disposition: 21:06
Patient with high blood pressure during this ER visit?: No
Condition: Good
Discharge Problem:
Low blood sugar
Instructions: Low blood sugar in people without diabetes
Prescriptions:
No Action
diphenoxylate-atropine [Lomotil] 2.5-0.025 mg Tablet
1 tab PO DAILY PRN (Reason: diarrhea)
famotidine [Pepcid] 20 mg Tablet
40 mg PO HS
pantoprazole [Protonix] 40 mg Tablet,Delayed Release (Dr/Ec)
40 mg PO DAILY
omega-3 fatty acids-fish oil 684-1,200 mg Capsule,Delayed Release(Dr/Ec)
1 cap PO DAILY
amlodipine 10 mg tablet
10 mg 1XD
cetirizine 10 mg Tablet,Chewable
10 mg 1XD
cholecalciferol (vitamin D3) [Vitamin D3] 125 mcg (5,000 unit) Tablet
1 unit 1XD
multivitamin
1 tab 1XD
rizatriptan 10 mg tablet,disintegrating
10 mg PO ONCE PRN (Reason: migraine headache) Qty: 30 0RF
losartan 25 mg Tablet
25 mg PO DAILY 30 Days Qty: 30 0RF
Activity Restrictions/Additional Instructions:
Eat frequent small meals treat plenty of fluids return to the ER if worsening symptoms
Interventions
Interventions:
*Risk Screen - Suicide Last Done: 08/24/25 17:52
*Neglect/Abuse Screening Last Done: 08/24/25 17:52
ED- Neurological Assessment Last Done: 08/24/25 18:39
ED Swallowing Screen Last Done: 08/24/25 19:44
Discharge Date and Time
Print Language: INDONESIAN
[2025-08-24 18:47] LABS: INR 0.99; PT 13.6 Sec (11.4-14.6)
[2025-08-24 18:48] LABS: APTT 26.1 Sec (23.4-35.0)
[2025-08-24 19:02] LABS: ALT (SGPT) 32 U/L (0-35); AST (SGOT) 35 U/L (14-36); Albumin 4.2 g/dl (3.5-5.0); Alkaline Phosphatase 89 U/L (38-126); Blood Urea Nitrogen 38 mg/dl (7-17); Calcium 9.5 mg/dl (8.4-10.2); Carbon Dioxide 21 mmol/L (22-30); Chloride 112 mmol/L (98-107); Estimated Creatinine Clearance 23 ml/min; Glucose 52 mg/dl (70-99); Potassium 5.0 mmol/L (3.5-5.1); Sodium 141 mmol/L (135-145); Total Protein 7.2 g/dl (6.3-8.2); eGFR 30.32
[2025-08-24 19:10] LABS: Troponin I < 0.012 ng/ml
[2025-08-24 19:10] LABS: Glucose - Point of Care 89 mg/dl (70-99)
[2025-08-24] MEDS: D5/0.9% SODIUM CHLORIDE 1000 IV (20:01)
[2025-08-24 20:53] LABS: Glucose - Point of Care 131 mg/dl (70-99)
== END 2025-08-24 21:31 | disposition home or self-care (01) ==
LOC: EMR 17:46
PROVIDERS: EMERGENCY PHYSICIAN Emergency Medicine
DX: E16.2 Hypoglycemia, unspecified (principal); E16.A2 Hypoglycemia level 2; I12.9 Hypertensive chronic kidney disease with stage 1 through stage 4 chronic kidney disease, or unspecified chronic kidney disease; N18.9 Chronic kidney disease, unspecified; J44.89 Other specified chronic obstructive pulmonary disease; K31.84 Gastroparesis; K21.9 Gastro-esophageal reflux disease without esophagitis; Z87.891 Personal history of nicotine dependence; Z85.3 Personal history of malignant neoplasm of breast
CPT/HCPCS: 99284; 70450; 80053; 82962; 84484; 85025; 85610; 85730; 93005